=== PATIENT | female | born 1970 | race Two or more races ===

== ENCOUNTER → 2024-07-29 | Outpatient (CLI) | payer BC, SELFPAY ==
[2024-07-29 15:56] LABS: Collection Type, Urine Clean Catch; RBC,Urine 0 /hpf (0-3)
[2024-07-29 17:49] LABS: Bacteria,Urine 3+; Bilirubin,Urine Negative (Negative); Blood,Urine Trace (Negative); Calcium Oxalate Crystals,Urine 3+; Clarity,Urine Turbid (Clear/Hazy); Color,Urine Yellow (Lt Yel-Yel); Glucose, Urine Negative (Negative); Ketones,Urine Negative (Negative); Leukocyte Esterase,Urine Positive (Negative); Nitrite,Urine Negative (Negative); Protein,Urine Trace (Neg - Trace); Specific Gravity,Urine 1.028 (1.001-1.035); Squamous Epithelial Cell,Urine 3 /hpf (0-5); Urobilinogen,Urine Negative mg/dL (0.0-1.0); WBC,Urine < 1 /hpf (0-5)
== END | disposition home or self-care (01) ==
LOC: SLDO 15:45
PROVIDERS: PCP Family Medicine; Referring Provider Nurse Practitioner Family; Visit Provider Nurse Practitioner Family
DX: N39.0 Urinary tract infection, site not specified (principal)
CPT/HCPCS: 81001; 87086

== ENCOUNTER → 2024-08-28 | Outpatient (CLI) | payer BC, SELFPAY ==
[2024-08-28 16:40] LABS: Misc Send Out* See Sep Rpt
[2024-09-07 06:58] LABS: Estradiol, Ultrasensitive* 22 pg/mL
== END | disposition home or self-care (01) ==
LOC: SLDO 16:11
PROVIDERS: Referring Provider Specialist; Visit Provider Specialist
DX: N95.1 Menopausal and female climacteric states (principal); N93.9 Abnormal uterine and vaginal bleeding, unspecified
CPT/HCPCS: 36415; 82670; 83001

== ENCOUNTER → 2024-09-11 | Outpatient (CLI) | payer BC, SELFPAY ==
[2024-09-11 14:53] LABS: Collection Type, Urine Clean Catch; RBC,Urine 0 /hpf (0-3); WBC,Urine 0 /hpf (0-5)
[2024-09-11 16:22] LABS: Amorphous Crystals,Urine Present (Absent); Bilirubin,Urine Negative (Negative); Blood,Urine 1+ (Negative); Glucose, Urine Negative (Negative); Ketones,Urine Negative (Negative); Leukocyte Esterase,Urine Negative (Negative); Nitrite,Urine Negative (Negative); PH,Urine 5.5 (5.0-7.0); Protein,Urine Negative (Neg - Trace); Specific Gravity,Urine 1.026 (1.001-1.035); Squamous Epithelial Cell,Urine 6 /hpf (0-5); Urobilinogen,Urine Negative mg/dL (0.0-1.0)
[2024-09-11 16:27] LABS: Clarity,Urine Turbid (Clear/Hazy); Color,Urine Amber (Lt Yel-Yel)
== END | disposition home or self-care (01) ==
LOC: SLDO 14:28
PROVIDERS: PCP Registered Nurse; Referring Provider Registered Nurse; Visit Provider Registered Nurse
DX: N39.0 Urinary tract infection, site not specified (principal)
CPT/HCPCS: 81001; 87086

== ENCOUNTER → 2024-09-18 | Outpatient (CLI) | payer BC, SELFPAY ==
--- NOTE | 2024-09-18 11:30 | XR_ITS ---
Examination: Transvaginal ultrasound of the pelvis, complete Technique: Transvaginal sonographic images pelvis performed using [facility] scale imaging Exam date and time: September 18, 2024, 1124 hrs. Indications: Pelvic pain beginning one week ago, history left ovarian cystic disease Findings: Uterus 9.7 cm I 0.6 cm Uterine fundal mass 2.8 cm uterine fundal mass 1.1 cm Right ovary 3.2 cm arterial flow Left ovary obscured by bowel gas Impression: Uterine fundal area of probable fibroid degeneration Recommend 6 month follow-up transvaginal pelvic sonography.
== END | disposition home or self-care (01) ==
PROVIDERS: PCP Nurse Practitioner Family; Referring Provider Registered Nurse; Visit Provider Registered Nurse
DX: N83.202 Unspecified ovarian cyst, left side (principal)
CPT/HCPCS: 76830

== ENCOUNTER → 2024-10-06 | Outpatient (CLI) | payer BC, SELFPAY ==
[2024-10-06 15:04] LABS: Basophils # (Auto) 0.1 Thou/mm3 (0.0-0.2); Basophils % (Auto) 1 % (0-2.5); Eosinophils # (Auto) 0.3 Thou/mm3 (0.0-0.5); Eosinophils % (Auto) 3 % (0-10); Hematocrit 41.9 % (36.0-46.0); Hemoglobin 14.3 g/dL (12.0-16.0); Immature Granulocytes % (Auto) 0 % (0-0); Immature Granulocytes Auto 0.03 Thou/mm3 (0.00-0.00); Lymphocytes # (Auto) 2.2 Thou/mm3 (1.0-4.8); Lymphocytes % (Auto) 20 % (10-50); Mean Corpuscular HGB Conc 34.1 g/dl (31.0-37.0); Mean Corpuscular Hemoglobin 32.5 pg (25.0-35.0); Mean Corpuscular Volume 95 fL (80-100); Monocytes # (Auto) 1.3 Thou/mm3 (0.0-0.8); Monocytes % (Auto) 12 % (0-12); Neutrophils # (Auto) 7.1 Thou/mm3 (1.8-7.7); Neutrophils % (Auto) 65 % (37-80); Nucleated Red Blood Cell % 0 /100 WBC (0); Platelet Count 378 Thou/mm3 (140-440); RDW Standard Deviation 45.3 fL (36.4-46.3); White Blood Count 10.9 Thou/mm3 (3.6-11.0)
[2024-10-06 15:23] LABS: Ferritin 84 ng/mL (7.3-270.7); Iron 53 mcg/dL (50-170)
[2024-10-06 15:24] LABS: Free T4 (Free Thyroxine) 1.14 ng/dL (0.89-1.76); Thyroid Stimulating Hormone 0.96 uIU/mL (0.55-4.78)
[2024-10-06 15:39] LABS: Syphilis Nonreactive (Nonreactive)
== END | disposition home or self-care (01) ==
LOC: COPL 14:18
PROVIDERS: PCP Family Medicine; Referring Provider Specialist; Visit Provider Specialist
DX: N91.1 Secondary amenorrhea (principal)
CPT/HCPCS: 36415; 82627; 82728; 83540; 84146; 84402; 84403; 84439; 84443; 85025; 86038; 86780

== ENCOUNTER → 2024-10-15 | Outpatient (CLI) | payer BC, SELFPAY ==
[2024-10-15 12:18] LABS: Basophils % (Auto) 0 % (0-2.5); Eosinophils # (Auto) 0.2 Thou/mm3 (0.0-0.5); Eosinophils % (Auto) 2 % (0-10); Hematocrit 42.7 % (36.0-46.0); Hemoglobin 14.3 g/dL (12.0-16.0); Immature Granulocytes % (Auto) 1 % (0-0); Lymphocytes # (Auto) 2.6 Thou/mm3 (1.0-4.8); Lymphocytes % (Auto) 25 % (10-50); Mean Corpuscular HGB Conc 33.5 g/dl (31.0-37.0); Mean Corpuscular Hemoglobin 32.6 pg (25.0-35.0); Mean Corpuscular Volume 97 fL (80-100); Monocytes # (Auto) 1.1 Thou/mm3 (0.0-0.8); Monocytes % (Auto) 11 % (0-12); Neutrophils # (Auto) 6.2 Thou/mm3 (1.8-7.7); Neutrophils % (Auto) 61 % (37-80); Nucleated Red Blood Cell % 0 /100 WBC (0); Platelet Count 380 Thou/mm3 (140-440); RDW Standard Deviation 45.9 fL (36.4-46.3); Red Blood Count 4.39 Miln/mm3 (4.00-5.20); White Blood Count 10.2 Thou/mm3 (3.6-11.0)
[2024-10-15 12:27] LABS: Partial Thromboplastin Time 33.3 Seconds (22.0-36.0); Prothrombin Time 11.1 Seconds (9.0-12.2)
[2024-10-15 12:36] LABS: Alanine Aminotransferase 14 U/L (10-49); Albumin, Serum 4.2 gm/dL (3.5-5.0); Albumin/Globulin Ratio 1.8 (1.2-2.2); Alkaline Phosphatase 68 U/L (46-116); Anion Gap 6 (7-16); Aspartate Amino Transferase 14 U/L (0-34); BUN/Creatinine Ratio 13 Ratio (12-20); Bilirubin,Total 1.4 mg/dL (0.3-1.2); Blood Urea Nitrogen 9 mg/dL (9-23); Calcium 9.1 mg/dL (8.3-10.6); Calcium (Corrected) 9.1 mg/dL (8.5-10.1); Chloride 104 mMol/L (98-107); Creatinine (Component) 0.7 mg/dL (0.6-1.3); Globulin 2.4 gm/dL (2.3-3.5); Glucose 89 mg/dL (74-106); Osmolality,Calculated 275 (275-295); Potassium 4.2 mMol/L (3.4-5.1); Sodium 139 mMol/L (136-145); Total Protein 6.6 gm/dL (5.7-8.2); eGFR > 60 See Note
== END | disposition home or self-care (01) ==
PROVIDERS: PCP Family Medicine; Referring Provider Internal Medicine Gastroenterology; Visit Provider Internal Medicine Gastroenterology
DX: R10.9 Unspecified abdominal pain (principal)
CPT/HCPCS: 36415; 80053; 85025; 85610; 85730

== ENCOUNTER → 2024-12-03 | Outpatient (BNVA) | payer BC, SELFPAY | END | disposition home or self-care (01) | PROVIDERS: PCP Family Medicine; Referring Provider Family Medicine; Visit Provider Urology | DX: R31.29 Other microscopic hematuria (principal); Z87.440 Personal history of urinary (tract) infections; R35.0 Frequency of micturition; I10 Essential (primary) hypertension; E66.9 Obesity, unspecified; Z68.31 Body mass index [BMI] 31.0-31.9, adult | CPT/HCPCS: 81003; 99212; G0463 ==

== ENCOUNTER → 2025-02-04 | Outpatient (CLI) | payer BC, SELFPAY ==
[2025-02-04 11:25] LABS: Alanine Aminotransferase 16 U/L (10-49); Albumin, Serum 4.4 gm/dL (3.5-5.0); Alkaline Phosphatase 60 U/L (46-116); Aspartate Amino Transferase 18 U/L (0-34); Bilirubin,Direct 0.3 mg/dL (0.0-0.3); Bilirubin,Total 1.2 mg/dL (0.3-1.2); Cardiac Risk Estimate 3.8 RATIO (3.7-5.6); Cholesterol 208 mg/dL (132-200); HDL Cholesterol 55 mg/dL (40-60); LDL Cholesterol,Calculated 130 mg/dL (0-130); Total Protein 7.2 gm/dL (5.7-8.2); Triglycerides 117 mg/dL (30-150)
== END | disposition home or self-care (01) ==
LOC: COPL 10:38
PROVIDERS: PCP Nurse Practitioner Family; Referring Provider Internal Medicine Gastroenterology; Visit Provider Internal Medicine Cardiovascular Disease
DX: R94.5 Abnormal results of liver function studies (principal); E80.7 Disorder of bilirubin metabolism, unspecified; I10 Essential (primary) hypertension; R07.9 Chest pain, unspecified; E78.00 Pure hypercholesterolemia, unspecified
CPT/HCPCS: 36415; 80061; 80076

== ENCOUNTER → 2025-03-16 | Outpatient (CLI) | payer BC, SELFPAY ==
[2025-03-16 10:14] LABS: Misc Send Out* See Sep Rpt
[2025-03-16 11:33] LABS: Basophils # (Auto) 0.0 Thou/mm3 (0.0-0.2); Basophils % (Auto) 1 % (0-2.5); Eosinophils # (Auto) 0.3 Thou/mm3 (0.0-0.5); Eosinophils % (Auto) 4 % (0-10); Hematocrit 44.6 % (36.0-46.0); Hemoglobin 15.0 g/dL (12.0-16.0); Immature Granulocytes Auto 0.03 Thou/mm3 (0.00-0.00); Lymphocytes # (Auto) 2.4 Thou/mm3 (1.0-4.8); Lymphocytes % (Auto) 29 % (10-50); Mean Corpuscular HGB Conc 33.6 g/dl (31.0-37.0); Mean Corpuscular Hemoglobin 32.3 pg (25.0-35.0); Mean Corpuscular Volume 96 fL (80-100); Monocytes # (Auto) 0.9 Thou/mm3 (0.0-0.8); Monocytes % (Auto) 11 % (0-12); Neutrophils # (Auto) 4.7 Thou/mm3 (1.8-7.7); Neutrophils % (Auto) 56 % (37-80); Nucleated Red Blood Cell # 0.00 Thou/mm3 (0.00-0.00); Nucleated Red Blood Cell % 0 /100 WBC (0); Platelet Count 328 Thou/mm3 (140-440); RDW Standard Deviation 43.0 fL (36.4-46.3); Red Blood Count 4.65 Miln/mm3 (4.00-5.20); White Blood Count 8.5 Thou/mm3 (3.6-11.0)
[2025-03-16 11:58] LABS: Alanine Aminotransferase 20 U/L (10-49); Albumin, Serum 4.5 gm/dL (3.5-5.0); Albumin/Globulin Ratio 1.8 (1.2-2.2); Alkaline Phosphatase 60 U/L (46-116); Anion Gap 12 (7-16); Aspartate Amino Transferase 22 U/L (0-34); BUN/Creatinine Ratio 16 Ratio (12-20); Bilirubin,Direct 0.4 mg/dL (0.0-0.3); Bilirubin,Total 1.2 mg/dL (0.3-1.2); Blood Urea Nitrogen 13 mg/dL (9-23); C-Reactive Protein < 0.5 mg/dL (0.0-0.9); Calcium 9.9 mg/dL (8.3-10.6); Calcium (Corrected) 9.9 mg/dL (8.5-10.1); Carbon Dioxide 28.1 mMol/L (20.0-31.0); Cardiac Risk Estimate 2.3 RATIO (3.7-5.6); Chloride 102 mMol/L (98-107); Cholesterol 150 mg/dL (132-200); Creatinine (Component) 0.8 mg/dL (0.6-1.3); Globulin 2.5 gm/dL (2.3-3.5); Glucose 92 mg/dL (74-106); HDL Cholesterol 65 mg/dL (40-60); LDL Cholesterol,Calculated 60 mg/dL (0-130); Osmolality,Calculated 283 (275-295); Potassium 4.6 mMol/L (3.4-5.1); Sodium 142 mMol/L (136-145); Total Protein 7.0 gm/dL (5.7-8.2); Triglycerides 125 mg/dL (30-150); eGFR > 60 See Note
[2025-03-16 12:32] LABS: Sed Rate (ESR) 25 mm/hr (0-30)
[2025-03-21 05:04] LABS: Cardiolipin Ab (IgA) <2.0 APL-U/mL; Cardiolipin Ab (IgG) <2.0 GPL-U/mL; Sjogren's antibody (SS-A) <1.0 NEG AI (<1.0 NEGATIVE); Sm Antibody <1.0 NEG AI (<1.0 NEGATIVE)
[2025-03-22 06:35] LABS: ANA Pattern NUCLEAR, SPECKLED; ANA Screen, IFA POSITIVE (NEGATIVE); ANA Titer 1:80 titer; Complement Component C3* 142 mg/dL (83-193); Complement Component C4c* 22 mg/dL (15-57); DNA (ds) Antibody* 1 IU/mL; Sjogren's Antibody (SS-B) <1.0 NEG AI (<1.0 NEGATIVE)
[2025-03-22 06:36] LABS: B2-Glycoprotein I Ab IgA 2.0 U/mL; B2-Glycoprotein I Ab IgG <2.0 U/mL; B2-Glycoprotein I Ab IgM <2.0 U/mL; Cardiolipin Ab (IgM) <2.0 MPL-U/mL; Scl-70 Antibody* <1.0 NEG AI (<1.0 NEGATIVE); Sm/RNP Antibody <1.0 NEG AI (<1.0 NEGATIVE); Thyroid Peroxidase Antibodies* 205 IU/mL (<9)
== END | disposition home or self-care (01) ==
LOC: COPL 09:41
PROVIDERS: PCP Family Medicine; Referring Provider Internal Medicine; Visit Provider Internal Medicine Cardiovascular Disease
DX: E78.00 Pure hypercholesterolemia, unspecified (principal); I10 Essential (primary) hypertension; K21.9 Gastro-esophageal reflux disease without esophagitis; N96 Recurrent pregnancy loss; I73.00 Raynaud's syndrome without gangrene; R21 Rash and other nonspecific skin eruption; R53.83 Other fatigue; R76.8 Other specified abnormal immunological findings in serum; Z84.0 Family history of diseases of the skin and subcutaneous tissue
CPT/HCPCS: 36415; 80053; 80061; 82248; 82785; 83516; 85025; 85652; 86038; 86039; 86140; 86146; 86147; 86160; 86162; 86225; 86235; 86376; 86880

== ENCOUNTER → 2025-04-02 | Outpatient (CLI) | payer BC, SELFPAY ==
--- NOTE | 2025-04-02 12:35 | XR_ITS ---
Examination: Shoulder,left, 3 views Technique: Shoulder AP internal rotation, AP external rotation, Y view shoulder, 3 views Exam date and time :April 02, 2025, 1252 hours INDICATIONS: Left shoulder pain 6 years FINDINGS: Moderate osteoarthritis glenohumeral joint No fracture or shoulder dislocation IMPRESSION: Moderate osteoarthritis glenohumeral joint
== END | disposition home or self-care (01) ==
LOC: CDIM 12:23
PROVIDERS: PCP Family Medicine; Referring Provider Nurse Practitioner Family; Visit Provider Nurse Practitioner Family
DX: M17.12 Unilateral primary osteoarthritis, left knee (principal)
CPT/HCPCS: 73030

== ENCOUNTER → 2025-04-26 | Outpatient (CLI) | payer BC, SELFPAY ==
[2025-04-27 11:19] LABS: BVAG Candida Negative (Negative); Bacterial Vaginosis Markers Negative (Negative); Candida glabrata Negative (Negative); Candida krusei PCR Negative (Negative); Trichomonas Negative (Negative)
== END | disposition home or self-care (01) ==
LOC: SLDO 14:42
PROVIDERS: Referring Provider Physician Assistant Medical; Visit Provider Physician Assistant Medical
DX: B37.89 Other sites of candidiasis (principal); N76.0 Acute vaginitis; A59.01 Trichomonal vulvovaginitis
CPT/HCPCS: 81514

== ENCOUNTER → 2025-05-05 | Outpatient (CLI) | payer BC, SELFPAY ==
--- NOTE | 2025-05-05 08:15 | XR_ITS ---
EXAMINATION: Lumbar spine 3 views TECHNIQUE: AP lateral coned lateral lower lumbar spine 3 views Date and time: May 05, 2025, 0839 hours INDICATIONS: Lower back pain 3 months. FINDINGS: Straightening of the normal lumbar lordosis No lumbar fracture Moderate to advanced degenerative disc disease L2-L3 Milder degenerative disc disease L1-L2 Moderate lumbar spondylosis No spondylolisthesis IMPRESSION: Moderate to advanced degenerative disc disease L2-L3
--- NOTE | 2025-05-05 08:15 | XR_ITS ---
Examination: Right hip AP, lateral, AP pelvis 3 views Technique: Hip AP lateral, AP pelvis, 3 views Exam date and time: May 05, 2025, 0830 hours INDICATIONS: Right hip pain beginning 3 months ago. FINDINGS: Moderate osteopenia. Mild narrowing hip joints No right or left hip fracture or dislocation No avascular necrosis. Bones of the pelvis intact IMPRESSION: Mild narrowing hip joints.
[2025-05-05 09:38] LABS: Free T4 (Free Thyroxine) 1.14 ng/dL (0.89-1.76); Thyroid Stimulating Hormone 1.80 uIU/mL (0.55-4.78)
[2025-05-10 07:00] LABS: T3,Total* 107 ng/dL (76-181)
== END | disposition home or self-care (01) ==
PROVIDERS: PCP Family Medicine; Referring Provider Nurse Practitioner Family; Visit Provider Nurse Practitioner Family
DX: M25.851 Other specified joint disorders, right hip (principal); M51.360 Other intervertebral disc degeneration, lumbar region with discogenic back pain only; Z00.00 Encounter for general adult medical examination without abnormal findings
CPT/HCPCS: 36415; 72100; 73502; 84439; 84443; 84480

== ENCOUNTER → 2025-05-11 | Outpatient (CLI) | payer BC, SELFPAY ==
--- NOTE | 2025-05-11 15:00 | XR_ITS ---
Examination: Screening digital mammography, bilateral Computer aided detection 3-D breast Tomosynthesis, bilateral Date and time of exam: 05/11/2025, 3:29 p.m. Comparisons: 05/15/2024 Indications: Screening Technique: Nonmagnified MLO, CC views of the breasts to been obtained, reconstructed from 3-D Tomosynthesis images. R2 computer aided detection program utilized for evaluation of suspicious masses and/or abnormal calcifications. 3-D Tomosynthesis images obtained. Technologist: Findings: There are scattered areas of fibroglandular density. No evidence of abnormal masses or suspicious calcifications. Impression: BI-RADS category 1: Negative findings (within normal) Recommend 1 year follow-up mammogram
== END | disposition home or self-care (01) ==
LOC: CDIM 14:46
PROVIDERS: Referring Provider Nurse Practitioner Family; Visit Provider Nurse Practitioner Family
DX: Z12.31 Encounter for screening mammogram for malignant neoplasm of breast (principal); R92.313 Mammographic fatty tissue density, bilateral breasts
CPT/HCPCS: 77063; 77067

== ENCOUNTER → 2025-06-10 | Outpatient (CLI) | payer BC, SELFPAY ==
[2025-06-10 13:57] LABS: Misc Send Out* See Sep Rpt
[2025-06-10 14:45] LABS: Basophils # (Auto) 0.0 Thou/mm3 (0.0-0.2); Basophils % (Auto) 0 % (0-2.5); Eosinophils # (Auto) 0.2 Thou/mm3 (0.0-0.5); Eosinophils % (Auto) 2 % (0-10); Hematocrit 43.9 % (36.0-46.0); Hemoglobin 14.5 g/dL (12.0-16.0); Immature Granulocytes Auto 0.02 Thou/mm3 (0.00-0.00); Lymphocytes # (Auto) 2.0 Thou/mm3 (1.0-4.8); Lymphocytes % (Auto) 28 % (10-50); Mean Corpuscular HGB Conc 33.0 g/dl (31.0-37.0); Mean Corpuscular Hemoglobin 31.7 pg (25.0-35.0); Mean Corpuscular Volume 96 fL (80-100); Monocytes # (Auto) 0.7 Thou/mm3 (0.0-0.8); Monocytes % (Auto) 10 % (0-12); Neutrophils # (Auto) 4.4 Thou/mm3 (1.8-7.7); Neutrophils % (Auto) 60 % (37-80); Nucleated Red Blood Cell # 0.00 Thou/mm3 (0.00-0.00); Nucleated Red Blood Cell % 0 /100 WBC (0); Platelet Count 322 Thou/mm3 (140-440); RDW Standard Deviation 43.8 fL (36.4-46.3); Red Blood Count 4.57 Miln/mm3 (4.00-5.20); White Blood Count 7.3 Thou/mm3 (3.6-11.0)
[2025-06-10 14:56] LABS: Sed Rate (ESR) 13 mm/hr (0-30)
[2025-06-10 15:08] LABS: Alanine Aminotransferase 23 U/L (10-49); Albumin, Serum 4.7 gm/dL (3.5-5.0); Albumin/Globulin Ratio 1.8 (1.2-2.2); Alkaline Phosphatase 67 U/L (46-116); Anion Gap 10 (7-16); Aspartate Amino Transferase 23 U/L (0-34); BUN/Creatinine Ratio 14 Ratio (12-20); Bilirubin,Total 1.1 mg/dL (0.3-1.2); Blood Urea Nitrogen 11 mg/dL (9-23); C-Reactive Protein < 0.5 mg/dL (0.0-0.9); Calcium 9.2 mg/dL (8.3-10.6); Calcium (Corrected) 9.2 mg/dL (8.5-10.1); Carbon Dioxide 27.9 mMol/L (20.0-31.0); Chloride 104 mMol/L (98-107); Creatinine (Component) 0.8 mg/dL (0.6-1.3); Free T4 (Free Thyroxine) 1.19 ng/dL (0.89-1.76); Globulin 2.6 gm/dL (2.3-3.5); Glucose 152 mg/dL (74-106); Osmolality,Calculated 285 (275-295); Potassium 4.0 mMol/L (3.4-5.1); Sodium 142 mMol/L (136-145); Thyroid Stimulating Hormone 1.02 uIU/mL (0.55-4.78); Total Protein 7.3 gm/dL (5.7-8.2); eGFR > 60 See Note
== END | disposition home or self-care (01) ==
LOC: COPL 13:41
PROVIDERS: PCP Family Medicine; Referring Provider Internal Medicine; Visit Provider Internal Medicine
DX: I10 Essential (primary) hypertension (principal); I73.00 Raynaud's syndrome without gangrene; K21.9 Gastro-esophageal reflux disease without esophagitis; N96 Recurrent pregnancy loss; R21 Rash and other nonspecific skin eruption; R53.83 Other fatigue; Z84.0 Family history of diseases of the skin and subcutaneous tissue
CPT/HCPCS: 36415; 80053; 84439; 84443; 85025; 85652; 86038; 86140

== ENCOUNTER → 2025-06-11 | Outpatient (CLI) | payer BC, SELFPAY ==
--- NOTE | 2025-06-11 10:38 | XR_ITS ---
EXAMINATION: Bilateral AP knee single view TECHNIQUE: Standing weightbearing bilateral AP knees single view Date and time: June 11, 2025, 1108 hours INDICATIONS: Left knee pain for months. FINDINGS: Moderate osteopenia Mild narrowing medial joint spaces No fractures or dislocations IMPRESSION: Mild narrowing medial joint spaces
--- NOTE | 2025-06-11 10:38 | XR_ITS ---
Examination: Knee, left, 3 views Technique: Knee AP, lateral, oblique 3 views Date and time of exam: June 11, 2025, 1103 hours INDICATIONS: Left knee pain for months. FINDINGS: Moderate osteopenia. Mild narrowing medial joint space Minimal osteophyte formation posteriorly patella Small knee effusion IMPRESSION: Mild osteoarthritis No fracture
== END | disposition home or self-care (01) ==
LOC: CDIM 10:19
PROVIDERS: PCP Nurse Practitioner Family; Referring Provider Nurse Practitioner Family; Visit Provider Nurse Practitioner Family
DX: M17.12 Unilateral primary osteoarthritis, left knee (principal); M25.862 Other specified joint disorders, left knee; M25.861 Other specified joint disorders, right knee
CPT/HCPCS: 73560; 73562; 73564; 73565